=== PATIENT | female | born 1970 | race Caucasian/White ===

== ENCOUNTER → 2025-08-02 | Day surgery (SDC) | payer MEDICAID ==
[~2025-08-02] VITALS: Ht 162.6 cm; Wt 69.5 kg
[~2025-08-02] MED LIST: DASA50TA PO; LIDOCAINE/PF 2% 5 ML VIAL ONE; OXYGEN THERAPY IH SCH; PROPOFOL 1% 20 ML VIAL IVP ONE; SODIUM CHLORIDE 0.9% 1,000 ML ONE
[2025-08-02] MEDS: SODIUM CHLORIDE 0.9% 1,000 ML IV ONE (07:57)
== END | disposition home or self-care (01) ==
LOC: SURGERY 07:11
PROVIDERS: ATTEND Specialist
DX: Z12.11 Encounter for screening for malignant neoplasm of colon (principal); K52.9 Noninfective gastroenteritis and colitis, unspecified; F17.210 Nicotine dependence, cigarettes, uncomplicated
CPT/HCPCS: 45380; 88305; J2704; J3490; J7030